=== PATIENT | male | born 1970 | race Caucasian/White ===

== ENCOUNTER 2022-07-06 17:07 | Inpatient (IN) | payer MEDICAID, SELFPAY ==
[2022-07-06 17:14] VITALS: BP 174/100; PULSE 94; O2SAT 100
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
[2022-07-06 17:36] VITALS: BP 130/78; PULSE 100; RESP 18; TEMP 36.8; O2SAT 97; BMI 33.2
[2022-07-06 18:37] LABS: MANUAL DIFF FLAG NO
[2022-07-06 18:38] LABS: Basophils Percent Auto 0.5 % (0-2); Eosinophils Absolute Auto 0.4 X10*3/uL (0.0-0.4); Eosinophils Percent Auto 5.7 % (0-4); Hematocrit 41.9 % (42.0-52.0); Hemoglobin 13.7 g/dl (14.0-18.0); Imm Gran Abs Auto 0.02 X10*3/uL (0.00-0.03); Imm Gran Pct Auto 0.3 % (0.0-0.4); Lymphocytes Absolute Auto 2.4 X10*3/uL (1.2-4.9); Lymphocytes Percent Auto 35.8 % (20-40); Mean Corpuscular HGB Conc 32.7 g/dl (31.0-36.0); Mean Corpuscular Hemoglobin 26.7 pg (27.0-33.0); Mean Corpuscular Volume 81.5 fL (80.0-98.0); Mean Platelet Volume 10.6 fL (9.4-12.4); Monocytes Absolute Auto 0.5 X10*3/uL (0.1-1.2); Monocytes Percent Auto 6.8 % (2-11); Neutrophils Absolute Auto 3.4 x10*3/uL (2.0-8.3); Neutrophils Percent Auto 50.9 % (45-73); Platelet Count 141 X10*3/uL (160-400); Red Blood Count 5.14 X10*6/uL (4.60-5.80); Red Cell Distribution Width 13.3 % (11.0-16.0); White Blood Count 6.6 X10*3/uL (4.8-10.8)
--- NOTE | 2022-07-06 18:43 | MHC.CARE ---
[facility])
[2022-07-06 18:53] LABS: Amphetamine Screen Urine Not Detected (Not Detect); Barbiturates, Urine Not Detected (Not Detect); Benzodiazepines Screen Urine Not Detected (Not Detect); Cannabinoid Screen Urine Not Detected (Not Detect); Cocaine Screen Urine Not Detected (Not Detect); Fentanyl, urine Not Detected (Not Detect); Opiate Screen Urine Not Detected (Not Detect); Phencyclidine Screen Urine Not Detected (Not Detect)
[2022-07-06 18:59] LABS: COVID-19 Test Negative (Negative); IDNOW Serial# 08D9AD1C
[2022-07-06 19:04] LABS: Acetaminophen LAB < 17 mcg/mL (<30); Alanine Aminotransferase 21 U/L (0-40); Albumin Level 3.8 g/dL (3.5-5.0); Alkaline Phosphatase 83 U/L (39-117); Anion Gap 16 (12-20); Aspartate Amino Transferase 22 U/L (5-37); Bilirubin Total 0.3 mg/dL (0.0-1.0); Blood Urea Nitrogen 12 mg/dL (9-16); Carbon Dioxide 25 mmol/L (22-29); Chloride 103 mmol/L (96-108); Estimated Glomerular Filt Rate > 60; Ethanol < 10 mg/dL; Glucose Random 125 mg/dL (60-115); Magnesium 1.9 mg/dL (1.6-2.6); Sodium 140 mmol/L (135-145); Total Protein 6.8 g/dL (6.5-8.0)
[2022-07-06 19:13] LABS: Salicylate < 5.0 mg/dL (15-30)
[2022-07-06 19:36] VITALS: BP 143/88; PULSE 103; RESP 18; TEMP 36.4; O2SAT 97
[2022-07-06] MEDS: Calcium Carbonate 750 MG TAB.CHEW PO (23:21)
--- NOTE | 2022-07-07 00:01 | PC.NURSE ---
Assumed care of pt. at 2300. Pt. lying in bed at that time. Pt. just woke up from a nap and reporting a burning sensation in his esophagus and throat. Pt. medicated per JUN. Pt. also reported feeling like he needed to vomit. Pt. vomited a moderate amount and is positioned semi-sitting up in bed. Pt. reported feeling better and is now asleep in bed. Will continue to monitor.
--- NOTE | 2022-07-07 03:00 | PC.NURSE ---
Pt. awake and requesting to use the bathroom for a bm. Pt. able to stand and transfer with 1-2 assist into w/c. and then able to transfer to toilet. Pt. didn't have a bm only urinated. Pt. wheeled back to bed and is sitting up in bed per his request.
[2022-07-07 03:11] VITALS: BP 144/77; PULSE 98; RESP 16; TEMP 37.1; O2SAT 95
--- NOTE | 2022-07-07 03:29 | PC.NURSE ---
Assumed care from RICHA Prado at 3:15am, pt is sleeping no sign of distress, pt is a 1;1 for safety. Will continue to monitor.
--- NOTE | 2022-07-07 03:42 | PC.NURSE ---
assumed care from Rosalva Prado at 3:15am, pt resting in bed watching TV, no sign of distress, pt is calm. Pt reports he not sure if he still SI or HI, he just trying to block it out of his mind.
[2022-07-07] MEDS: Ondansetron ODT 4 MG TAB.RAPDIS TRANSLINGU ×2 (04:17→22:08)
--- NOTE | 2022-07-07 04:21 | PC.NURSE ---
pt complaining of nausea, pt medicated per Jun.
[2022-07-07 06:11] VITALS: BP 141/76; PULSE 85; RESP 16; TEMP 36.9; O2SAT 96
[2022-07-07 07:10] VITALS: BP 153/78; PULSE 78; RESP 18; TEMP 36.8; O2SAT 98
--- NOTE | 2022-07-07 07:23 | PC.NURSE ---
Addendum entered by Cesar Bernal 07/07/22 07:24: med rec ordered for pt this am Original Note: report taken from jolene sanchez pt here for si/hi, reported ah at intermediate, significant psych hx in past, has informative medical record binder at bedside. pt is wheelchair bound at baseline, sitting up in stretcher eating breakfast without issue, calm and cooperative at this time. awaiting dispo.
--- NOTE | 2022-07-07 11:08 | PHA.MEDREC ---
Pharmacy Consult ? Medication Reconciliation Pharmacy has completed the medication reconciliation. Med rec complete using list from snf. Pt unable to provide any information.
--- NOTE | 2022-07-07 11:50 | MHC.EDTECH ---
Helped Pt w/ oral hygiene. Provided toothbrush, toothpaste and mouth wash. Also gave Pt bath wipes to clean up, per request. Pt asked for juice which was given. No other concerns at this time. Reminded Pt to use call mann if needing anything, he agrees.
[2022-07-07] MEDS: cloZAPine 25 MG TABLET 50 MG PO ×2 (13:29→22:31)
[2022-07-07] MEDS: bisacodyL 5 MG TABLET.DR PO (13:56)
--- NOTE | 2022-07-07 14:08 | ECG_ITS ---
Test Reason : ANTIPSYCHOTIC MEDS Blood Pressure : / mmHG Vent. Rate : 083 BPM Atrial Rate : 083 BPM P-R Int : 132 ms QRS Dur : 072 ms QT Int : 314 ms P-R-T Axes : 049 023 -41 degrees QTc Int : 368 ms Normal sinus rhythm with sinus arrhythmia Low voltage QRS Nonspecific T wave abnormality Abnormal ECG No previous ECGs available Referred By: Chastity Herrera Electronically Signed By:David Smith
[2022-07-07 14:49] VITALS: BP 142/83; PULSE 81; RESP 16; TEMP 36.4; O2SAT 98
--- NOTE | 2022-07-07 16:35 | PC.NURSE ---
report given to ashley on m3
[2022-07-07] MEDS: Famotidine 20 MG TABLET PO (17:29)
--- NOTE | 2022-07-07 18:37 | PC.NURSE ---
spoke w [facility] staff for pt, [facility] sts that if someone is available to bring medication in tonight, they will. if not, they will bring the medication in first thing in the morning. medication needed is premarin.
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
[2022-07-07 22:15] VITALS: BP 141/87; PULSE 89; TEMP 36.8; O2SAT 97
[2022-07-07] MEDS: Glycopyrrolate 1 MG TABLET 2 MG PO (22:30)
[2022-07-07] MEDS: Melatonin 3 MG TABLET 6 MG PO (22:31)
[2022-07-07] MEDS: Sennosides 8.6 MG TABLET 17.2 MG PO (22:31)
[2022-07-07] MEDS: OLANZapine 5 MG TABLET PO (22:31)
[2022-07-07] MEDS: Divalproex Sodium ER 500 MG TAB.ER.24H 1000 MG PO (22:32)
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
[2022-07-08] MEDS: Famotidine 20 MG TABLET PO (06:39)
[2022-07-08] MEDS: Losartan Potassium 50 MG TABLET 100 MG PO (09:22)
[2022-07-08] MEDS: Sennosides 8.6 MG TABLET 17.2 MG PO (09:23)
[2022-07-08] MEDS: hydroCHLOROthiazide 25 MG TABLET PO (09:23)
[2022-07-08] MEDS: OLANZapine 2.5 MG TABLET PO (09:24)
[2022-07-08] MEDS: Tamsulosin HCL 0.4 MG CAPSULE PO (09:24)
[2022-07-08] MEDS: Glycopyrrolate 1 MG TABLET 2 MG PO (09:24)
[2022-07-08] MEDS: Divalproex Sodium ER 500 MG TAB.ER.24H 1000 MG PO (09:25)
[2022-07-08] MEDS: cloZAPine 25 MG TABLET 50 MG PO (09:25)
[2022-07-08] MEDS: Thiamine HCL 100 MG TABLET PO (09:25)
[2022-07-08 09:35] VITALS: BP 120/76; PULSE 95; RESP 18; TEMP 36.7; O2SAT 95
[2022-07-08 09:40] LABS: Alanine Aminotransferase 18 U/L (0-40); Albumin Level 3.5 g/dL (3.5-5.0); Alkaline Phosphatase 74 U/L (39-117); Anion Gap 10 (12-20); Aspartate Amino Transferase 18 U/L (5-37); Bilirubin Total 0.6 mg/dL (0.0-1.0); Blood Urea Nitrogen 13 mg/dL (9-16); Calcium 8.7 mg/dL (8.4-10.2); Carbon Dioxide 29 mmol/L (22-29); Chloride 102 mmol/L (96-108); Cholesterol 180 mg/dL; Creatinine Clr Calc Pharmacy 126.7; Estimated Glomerular Filt Rate > 60; Glucose Fasting 94 mg/dL (60-99); HDL Cholesterol 46 mg/dL; LDL Cholesterol Calculated 115 mg/dl; Magnesium 1.9 mg/dL (1.6-2.6); Potassium 4.2 mmol/L (3.3-5.1); Sodium 137 mmol/L (135-145); Total Protein 6.2 g/dL (6.5-8.0); Triglycerides 96 mg/dL
[2022-07-08 09:42] LABS: Estimated Average Glucose 114 mg/dL; Hemoglobin A1c % 5.6 %
[2022-07-08 09:50] LABS: Thyroid Stimulating Hormone 1.89 uIU/mL (0.32-4.0)
[2022-07-08] MEDS: Ondansetron ODT 4 MG TAB.RAPDIS TRANSLINGU (09:57)
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
== END 2022-07-08 19:10 | disposition other institution (70) | DRG 861 ==
LOC: HO.ED 07-07 09:08 → HO.PADLT16 07-07 17:10
PROVIDERS: Physician Assistant; Social Worker; Admitting Provider Psychiatry & Neurology Psychiatry; Emergency Provider Internal Medicine; PCP Internal Medicine; Visit Provider Psychiatry & Neurology Psychiatry
DX: Z76.5 Malingerer [conscious simulation] (principal); R45.851 Suicidal ideations; R45.850 Homicidal ideations; Z20.822 Contact with and (suspected) exposure to COVID-19; Z87.820 Personal history of traumatic brain injury; Z88.0 Allergy status to penicillin; Z79.899 Other long term (current) drug therapy
CPT/HCPCS: 36415; 80053; 80061; 80143; 80164; 80179; 80307; 82077; 83036; 83735; 84443; 85025; 87635; 93005; 99285

== ENCOUNTER 2024-03-08 10:58 | Emergency (ER) | payer OTHER, SELFPAY ==
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
[2024-03-08 11:13] VITALS: BP 149/91; BP 170/100; PULSE 100; PULSE 79; RESP 16; TEMP 36.8; O2SAT 95; O2SAT 98; BMI 28.5
[2024-03-08 11:22] VITALS: RESP 16
--- NOTE | 2024-03-08 11:22 | PC.NURSE ---
Romain comes in from a [facility] in [place] today after a disagreement regarding ice with a staff member. Patient reports that he became angry and wheeled himself out of the [facility] in his wheelchair. He reports that he was wheeling himself down the road when the [facility] called 911. He reports he has had multiple disagreements with staff at this [facility] and is sick of being there. He denies SI/HI/AH/VH. Patient is calm and cooperative. Pt is also wheelchair bound and incontinent. Given that the patient is incontient and non-ambulatory at baseline, pt was moved to ED 6 and report was given to RICHA Phan
[2024-03-08 11:45] LABS: Appearance Urine Clear; Color Urine Yellow; Glucose Urine UA Negative (Negative); Leukocyte Esterase Urine Negative (Negative); Nitrite Urine Negative (Negative); Specific Gravity - Urine <= 1.005 (1.005-1.025); Urine Blood Negative (Negative); Urine Ketones Negative (Negative); Urine Protein Negative (Neg-Trace)
[2024-03-08 11:49] LABS: Basophils Absolute Auto 0.1 X10*3/uL (0.0-0.2); Basophils Percent Auto 0.8 % (0-2); Eosinophils Absolute Auto 0.3 X10*3/uL (0.0-0.4); Eosinophils Percent Auto 3.9 % (0-4); Hemoglobin 13.7 g/dl (14.0-18.0); Imm Gran Abs Auto 0.03 X10*3/uL (0.00-0.03); Imm Gran Pct Auto 0.4 % (0.0-0.4); Lymphocytes Absolute Auto 2.1 X10*3/uL (1.2-4.9); MANUAL DIFF FLAG SCAN; Mean Corpuscular HGB Conc 33.4 g/dl (31.0-36.0); Mean Corpuscular Hemoglobin 26.6 pg (27.0-33.0); Mean Corpuscular Volume 79.5 fL (80.0-98.0); Monocytes Absolute Auto 0.5 X10*3/uL (0.1-1.2); Monocytes Percent Auto 7.3 % (2-11); Neutrophils Absolute Auto 4.1 x10*3/uL (2.0-8.3); Neutrophils Percent Auto 57.6 % (45-73); PLT CLUMP 1; Red Blood Count 5.16 X10*6/uL (4.60-5.80); Red Cell Distribution Width 13.8 % (11.0-16.0); SCAN SMEAR FLAG 1
[2024-03-08 11:50] LABS: White Blood Count 7.1 X10*3/uL (4.8-10.8)
--- NOTE | 2024-03-08 11:56 | MHC.CARE ---
Pt does not present as an imminent risk or meet the criteria for a higher level of care at this time. He was transferred from his senior care in [place] secondary to being upset that he couldn't get ice and wheeling his wheelchair outside. Pt denies A/V/H, SI and HI. T/W spoke with Carlyle Pereira, supervisor cutting and boning at the [facility] and she reported she has no safety concerns for Pt and he may he transported back [facility]. Of note, Pt has no access to medications or sharps as they are all locked up in the . Provider in agreement with disposition.
[2024-03-08 11:57] LABS: Amphetamine Screen Urine Not Detected (Not Detect); Barbiturates, Urine Not Detected (Not Detect); Benzodiazepines Screen Urine Not Detected (Not Detect); Buprenorphine Scr Not Detected (Not Detect); Cannabinoid Screen Urine Not Detected (Not Detect); Cocaine Screen Urine Not Detected (Not Detect); Fentanyl, urine Not Detected (Not Detect); Methadone Screen, Urine Not Detected (Not Detect); Opiate Screen Urine Not Detected (Not Detect); Oxycodone Screen Urine Not Detected (Not Detect); Phencyclidine Screen Urine Not Detected (Not Detect)
[2024-03-08 11:59] LABS: Alanine Aminotransferase 19 U/L (0-40); Alkaline Phosphatase 83 U/L (39-117); Anion Gap 15 (12-20); Aspartate Amino Transferase 25 U/L (5-37); Bilirubin Total 0.3 mg/dL (0.0-1.0); Blood Urea Nitrogen 7 mg/dL (9-16); Calcium 9.4 mg/dL (8.4-10.2); Carbon Dioxide 22 mmol/L (22-29); Chloride 101 mmol/L (96-108); Creatinine Clr Calc Pharmacy 155.8; Estimated Glomerular Filt Rate > 60; Ethanol < 10 mg/dL; Glucose Random 88 mg/dL (60-115); Magnesium 1.8 mg/dL (1.6-2.6); Potassium 4.1 mmol/L (3.3-5.1); Sodium 134 mmol/L (135-145); Total Protein 7.3 g/dL (6.5-8.0)
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
[2024-03-08 12:17] LABS: Mean Platelet Volume 11.2 fL (9.4-12.4); Platelet Count 104 X10*3/uL (160-400)
[2024-03-08 12:18] LABS: SLIDE REVIEW VERIFIED
[2024-03-08 14:32] VITALS: BP 149/91; PULSE 100; RESP 16; TEMP 36.8; O2SAT 95
== END 2024-03-08 14:33 | disposition home or self-care (01) ==
PROVIDERS: Physician Assistant; Emergency Provider Student in an Organized Health Care Education/Training Program
DX: F41.9 Anxiety disorder, unspecified (principal); R44.2 Other hallucinations; Z99.3 Dependence on wheelchair; Z79.899 Other long term (current) drug therapy
CPT/HCPCS: 36415; 80053; 80307; 81003; 83735; 85025; 99284